=== PATIENT | female | born 1960 ===

== ENCOUNTER 2018-04-20 08:32 | Outpatient (CLI) | payer OTHER ==
[~2018-04-20] VITALS: Ht 152.4 cm; Wt 71.7 kg
== END 2018-04-20 08:45 | disposition home or self-care (01) ==
LOC: OFIC 805 08:32
DX: H81.12 Benign paroxysmal vertigo, left ear (principal); G43.809 Other migraine, not intractable, without status migrainosus; H90.3 Sensorineural hearing loss, bilateral

== ENCOUNTER 2018-06-22 07:26 | Outpatient (CLI) | payer OTHER ==
[~2018-06-22] VITALS: Ht 152.4 cm; Wt 71.7 kg
== END 2018-06-22 07:45 | disposition home or self-care (01) ==
LOC: OFIC 805 07:26
DX: R42 Dizziness and giddiness (principal)

== ENCOUNTER 2018-09-28 07:27 | Outpatient (CLI) | payer OTHER ==
[~2018-09-28] VITALS: Ht 152.4 cm; Wt 71.7 kg
== END 2018-09-28 07:40 | disposition home or self-care (01) ==
LOC: OFIC 805 07:27
DX: R42 Dizziness and giddiness (principal)

== ENCOUNTER 2019-02-15 08:30 | Outpatient (CLI) | payer OTHER ==
[~2019-02-15] VITALS: Ht 152.4 cm; Wt 71.7 kg
== END 2019-02-15 09:45 | disposition home or self-care (01) ==
LOC: OFIC 805 08:30
DX: H90.3 Sensorineural hearing loss, bilateral (principal); R42 Dizziness and giddiness; R51 Headache